=== PATIENT | female | born 1985 | race American Indian/Alaskan Native ===

== ENCOUNTER 2017-07-18 09:51 | Emergency (ER) | payer OTHER ==
[2017-07-18 10:47] VITALS: BMI 26.6
--- NOTE | 2017-07-18 13:35 | US ---
PROCEDURE: OB Pelvic Ultrasound HISTORY: PACO triage evaluation LMP: 12/18/2016 suggesting an estimated gestational age of 29 weeks 1 day. COMPARISON: None available. FINDINGS: UTERUS: A single viable intrauterine gestation is identified in apparent vertex position with cardiac activity recorded 157 beats per minute. Average ultrasonic age is 28 weeks 3 days which agrees with LMP derived dates. The placenta appears posterior and fundal. No definitive pattern of placental abruption or previa. Cervical length appears foreshortened to 2.5 cm although internal os is closed. No gross myometrial pathology is appreciated in the uterus as imaged. The following mean biometry was obtained: Biparietal diameter 7.3 cm corresponds to 29 weeks 1 day. Head circumference 25.7 cm corresponds to 28 weeks 0 days. Abdominal circumference 24.1 cm corresponds to 20 weeks 2 days. Femur length 5.4 cm corresponds to 20 weeks 3 days. Estimated weight 1222 g standard deviation. Amniotic fluid index 13.3 cm falls within normal range. HC/AC ratio 1.07, also falls within normal range. anatomical survey is quite limited within normal three-vessel umbilical cord identified peer stomach in urinary bladder is identified with the spine poorly characterized. abdominal umbilical cord insertion appears normal. Biophysical profile: breathing movements 2. movements 2. tones 2. Abdomen fluid 2. Total score: 8/8. CERVIX: As above. RIGHT OVARY: Not demonstrated. LEFT OVARY: Not demonstrated. FREE FLUID: None. OTHER FINDINGS: None. IMPRESSION: Biophysical profile score 8/8 in this single viable intrauterine gestation with average ultrasonic age of 28 weeks 3 days. Average ultrasonic age agrees with LMP derived dates 29 weeks 1 day. Foreshortened cervix of 2.5 cm. Closed internal os. Clinical follow-up advised. Biophysical score 8/8.
--- NOTE | 2017-07-18 16:52 | OBHP ---
Datetime: 07/18/2017 16:41 IP Adm Impression: , intrauterine ; No Active Labor; Intact Membranes IP Chief Complaint Other: leakage of fluid IP Admit Plan: Observation/Evaluation; Discharge home Admit Comment, IP Provider: 42-year-old at 29 weeks and 1 day gestational age presents to [facility] ED complaining of leakage of fluids. Patient denies any contractions or cramping or vaginal bleedi ng. Patient denies any contractions. Patient reports good movement. Patient currently has cervi qing cerclage in place. Past medical history none Past surgical history none Medications vitamins, aspirin 81 mg daily No known drug allergies Social history no tobacco, drugs, no alcohol Assessment: 29 weeks gestational age with vaginal candidiasis. No evidence of labor at this time spont aneous rupture of membranes. Cervical length 2.5 mm on ultrasound cerclage in place and intact Plan: Terazol 7 labor precautions, kick counts Patient discharged home. Patient will follow up with PMD in 3-4 days Extremities - PN: Normal Abdomen - PN: Normal Back - PN: Normal FHR - Baseline A Provider: 150s Membranes, Provider: Intact Contraction Comments Provider: none Comments, ACOG Physical Exam: Sterile speculum exam: Cervix long, closed, posterior No fluid, no blood Copious amounts of thick right discharge consistent with candidiasis EGA AdmitDate IP: 29.1 Vital Signs Provider: Reviewed; Within Normal Limits IP Chief Complaint: Other NICHD Variability Prov Fetus A: Moderate 6-25bpm NICHD Accel Fetus A IP Provider: [id number] FHR Category Provider Fetus A: Category I NICHD Decel Fetus A IP Provider: None Dilatation, Provider: 0 Effacement, Provider: 0 Station, Provider: -4 Genitourinary Exam: Normal
[2017-07-18 22:08] VITALS: BP 114/69; PULSE 98; TEMP 97.8; O2SAT 98
== END 2017-07-18 14:57 | disposition home or self-care (01) ==
LOC: H.EROB2 09:51 → H.EROB 10:02 → H.EROB2 14:57
DX: O26.93 Pregnancy related conditions, unspecified, third trimester (principal); B37.3 Candidiasis of vulva and vagina; Z3A.29 29 weeks gestation of pregnancy